=== PATIENT | male | born 2000 | race Caucasian/White ===

== ENCOUNTER → 2023-11-23 18:39 | Outpatient (CLI) | payer OTHER, SELFPAY ==
--- NOTE | 2023-11-23 | DI.MRI.S_ITS ---
PROCEDURE: MR ANKLE LT WO CON INDICATIONS: pain and instability, left ankle TECHNIQUE: Noncontrast sagittal T1 spin echo and T2 fast spin echo with fat saturation, axial proton density fast spin echo and T2 fast spin echo with fat saturation, coronal T1 spin echo and T2 fast spin echo with fat saturation through the ankle/hindfoot. COMPARISON: None. FINDINGS: Image quality: Excellent. Bones and joints: No acute trabecular bone injury or fracture. No hindfoot coalitions. No osteochondral injuries of the talar dome. Medial structures: The deltoid ligament and the spring ligament complex are intact. Mild to moderate distal posterior tibialis tenosynovitis. The flexor digitorum longus and flexor hallucis longus tendons are intact. The posterior tibial neurovascular bundle appears normal within the tarsal tunnel, without extrinsic mass effect. Lateral structures: Remote prior moderate grade sprains of the anterior talofibular ligament and the calcaneofibular ligament. Posterior talofibular ligament is intact. The anterior and posterior tibiofibular ligaments are intact. Mild tendinosis of the peroneus brevis and longus tendons. The sinus tarsi demonstrates normal fatty signal. Anterior structures: The tibialis anterior, extensor hallucis longus, and extensor digitorum longus tendons appear intact. Posterior and plantar structures: Achilles tendon is intact. The proximal plantar fascia is intact. No abductor digiti minimi muscle atrophy to suggest Martines neuropathy. IMPRESSION: 1. Mild to moderate distal posterior tibialis tenosynovitis. 2. Remote prior moderate grade sprains/partial tears of the anterior talofibular ligament and calcaneofibular ligament. 3. Mild peroneus brevis and longus tendinosis. Approved by: Jb Spangler M.D. on 11/24/2023 at 9:59
== END ==
PROVIDERS: Referring Provider Podiatrist; Visit Provider Podiatrist
DX: S93.492A Sprain of other ligament of left ankle, initial encounter (principal); M65.872 Other synovitis and tenosynovitis, left ankle and foot; M25.372 Other instability, left ankle; M25.572 Pain in left ankle and joints of left foot
CPT/HCPCS: 73721